=== PATIENT | female | born 1970 | race Caucasian/White ===

== ENCOUNTER 2017-07-13 12:56 | Emergency (ER) | payer OTHER ==
[~2017-07-13] VITALS: Ht 165.1 cm; Wt 107.0 kg
[~2017-07-13 12:56] MED LIST: AUGMENTIN 875 M1 TAB PO; BENADRYL; BUFFERED ASPIRIN; CLEOCIN HC150 MG/CAP PO; LEVOTHYROXINE PO; PAXIL PO; PERCOCET 325 MG1 TA2 PO; SINGULAIR; TRANDATE 100MG100 MG PO
[2017-07-13 12:59] VITALS: TEMP 98.8
[2017-07-13] MEDS ORDERED: TRANDATE 100MG100 MG PO (13:49)
[2017-07-13 14:38] VITALS: BP 153/99; PULSE 75
== END 2017-07-13 14:39 | disposition home or self-care (01) ==
LOC: COL.ER 12:56
DX: I10 Essential (primary) hypertension (principal)